=== PATIENT | male | born 1955 | race Caucasian/White ===

== ENCOUNTER 2016-10-13 11:09 | Outpatient (CLI) | payer OTHER ==
[2015-03-26 09:49] VITALS: BP 139/85
== END 2016-10-13 11:10 ==
LOC: LAB 11:09
PROVIDERS: ATTEND Physician Assistant
DX: E11.9 Type 2 diabetes mellitus without complications (principal)
CPT/HCPCS: 36415; 83036

== ENCOUNTER 2017-04-10 09:25 | Outpatient (CLI) | payer OTHER ==
[2015-03-26 09:49] VITALS: BP 139/85
[2017-04-10 10:02] LABS: eGFR (African) > 60; eGFR (Non-African) > 60
== END 2017-04-10 09:26 ==
LOC: LAB 09:25
PROVIDERS: ATTEND Physician Assistant
DX: I10 Essential (primary) hypertension (principal); Z13.6 Encounter for screening for cardiovascular disorders; E11.9 Type 2 diabetes mellitus without complications
CPT/HCPCS: 36415; 80053; 80061; 83036

== ENCOUNTER 2017-11-25 12:43 | Outpatient (CLI) | payer OTHER ==
[2015-03-26 09:49] VITALS: BP 139/85
--- NOTE | 2017-11-26 14:21 | OP Clinic Progress Note ---
REASON FOR VISIT: This 62-year-old man is seen with a variety of complaints regarding his nasal congestion and stuffiness and history of probable snoring. He has pressure and discomfort overlying the ethmoid areas, in between his eyes, and above his nose in the periorbital area bilaterally, and perhaps a little bit more on his right side than on his left. He has some pressure and discomfort in his ears, more in the left side than in the right side; although, he does not feel as if it causes a hearing loss. The nasal septum is very slightly left side deviated. There is increased erythema overlying the ethmoid area, more on the right side than the left with some purulent thickening on the middle turbinate. I do not see polyps on either side. The eardrums both are very slightly retracted. The left ear has some erythema along the vascular strip of the malleus. I do not see significant middle ear fluid in either ear. The oral cavity and pharynx are fairly clear. The Yuan is midline suggesting that there is not a significant conductive nor sensorineural hearing loss. Patient has used Nasacort and a variety of [id number] antihistamines. He does not feel these are significantly helpful. Later, he contributed a history that he is around a fair amount of dust, dirt, and irritants. Also, later he contributed that he uses a nasal saline flush that seems to have helped him. PLAN: Overall, although he is not very vociferous or emphatic about his complaints, he does mention that he would like to continue working to see if he can get some improvement of his symptoms. I gave him a Z-Rambo and encouraged him to recommence using the saline sprays or irrigations at his preference. Also, he would like to get a CT of the sinuses, which is reasonable. I will see him back in about a week. Mr. Vila is fairly low-mendiola but he is fairly persistent, in a very non-emphatic way, that his symptoms seem to bother him. cc: Dr. Lori CRISOSTOMO
== END 2017-11-25 12:45 ==
LOC: ENT 12:43
PROVIDERS: ATTEND Otolaryngology
DX: J32.9 Chronic sinusitis, unspecified (principal)
CPT/HCPCS: 99213

== ENCOUNTER 2017-12-01 13:44 | Outpatient (CLI) | payer OTHER ==
[2015-03-26 09:49] VITALS: BP 139/85
--- NOTE | 2017-12-01 18:11 | Diagnostic Imaging Report ---
CORINA CROW [facility] [id number] [facility] [address] [id number] Report Submission Date: Dec 01, 2017 5:45:35 PM CDT Patient Study Name: GIANNI MONTGOMERY Date: Dec 01, 2017 1:55:12 PM CDT Modality Type: CT\SR Gender: M Description: CT MAXILLOFACIAL W/O D : 55 Institution: [facility] Physician: CORINA CROW CT maxillofacial without contrast History: Sinusitis Technique: Helically acquired images were obtained through the paranasal sinuses. Sagittal and coronal reconstructions were performed. Findings: The paranasal sinuses are clear. The ostiomeatal complexes are patent. 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 There is slight leftward septal deviation. The nasal passages are clear. Mastoid air cells and middle ear cavities are clear. No intraorbital abnormalities are noted. Impression: No paranasal sinus disease. Normal paranasal sinuses. Electronically signed on Dec 01, 2017 5:45:35 PM CDT by: Luda CRISOSTOMO
== END 2017-12-01 13:45 ==
LOC: RAD 13:44
PROVIDERS: ATTEND Otolaryngology
DX: J32.9 Chronic sinusitis, unspecified (principal)
CPT/HCPCS: 70486

== ENCOUNTER 2017-12-02 13:56 | Outpatient (CLI) | payer OTHER ==
[2015-03-26 09:49] VITALS: BP 139/85
--- NOTE | 2017-12-06 17:25 | OP Clinic Progress Note ---
REASON FOR VISIT: This 62-year-old man has had marked nasal airway obstruction. He has had some headaches overlying the ethmoid areas or middle turbinates bilaterally. He has taken decongestants, antihistamines, and used nasal sprays. I have reviewed the patient's CT with him. Most of the sinuses are clear including the frontal, maxillary, and sphenoids. He has some degree of left septal deviation. Not diagnosed on the CT report is that he has bilateral angel luis bullosa and some rugated hypertrophic inferior turbinate tissue. I reviewed the actual CT images with the patient. He has positive Bowie sign bilaterally. He has bilateral nasal valve collapse. He has taken allergy shots in the past and they have not helped him. He has used nasal sprays along with decongestants, antihistamines, and steroids. PLAN: Patient still wants to consider some, not sinus surgery, but nasal surgery that has a reasonable probability of improving the nasal air flow. The patient understands he is absolutely under no obligation to have any type of surgery. He is still interested in considering this potentially later in the year and he may return on a p.r.n. basis. He additionally has some degree of Eustachian tube dysfunction with some pressure in his ears. He was given a trial on a Z- Rambo and he had no amelioration of his nasal airway restriction but he felt that he had some pressure taken off of his ears. cc: Dr. Lori CRISOSTOMO
== END 2017-12-02 13:58 ==
LOC: ENT 13:56
PROVIDERS: ATTEND Otolaryngology
DX: R09.81 Nasal congestion (principal); R51 Headache; J34.2 Deviated nasal septum
CPT/HCPCS: 99213

== ENCOUNTER 2018-06-29 07:08 | Outpatient (CLI) | payer OTHER ==
[2015-03-26 09:49] VITALS: BP 139/85
[2018-06-29 08:40] LABS: eGFR (Non-African) > 60
== END 2018-06-29 07:15 ==
LOC: LAB 07:08
PROVIDERS: ATTEND Nurse Practitioner Family
DX: E11.9 Type 2 diabetes mellitus without complications (principal)
CPT/HCPCS: 36415; 80053; 80061; 83036